=== PATIENT | female | born 1995 | race Caucasian/White ===

== ENCOUNTER 2018-12-14 22:04 | Emergency (ER) | payer BC ==
[~2018-12-14] VITALS: Ht 162.6 cm; Wt 83.2 kg
[2018-12-14 22:13] VITALS: Ht 162.6 cm; Wt 83.2 kg
[2018-12-14 23:20] VITALS: BP 140/97
== END 2018-12-14 23:20 | disposition home or self-care (01) ==
LOC: ED 22:04
DX: J45.909 Unspecified asthma, uncomplicated (principal); M54.6 Pain in thoracic spine
CPT/HCPCS: J7512; J7613; J7644